=== PATIENT | male | born 1970 | race Hispanic/Latino ===

== ENCOUNTER 2017-02-07 07:04 | Emergency (ER) | payer OTHER ==
[2017-02-07] MEDS ORDERED: Sodium Chloride 0.9% 1,000 ML IV STA (07:34)
--- NOTE | 2017-02-07 07:51 | ED PDOC ---
Syncope/Near Syncope/Dizziness Chief Complaint (Nursing): Syncope Chief Complaint (Provider): Syncope History Per: Patient History/Exam Limitations: no limitations Onset/Duration Of Symptoms: Hrs (x1.5) Number Of Syncopal Episodes: 1 Activity At Onset Of Symptoms: Sitting (on the bus) Fall Associated With With Symptoms: No Additional Complaint(s): Gregory Stanford is a 46 year old male, with no past medical history, who was brought to the emergency department by EMS accompanied by his neighbor for a syncopal episode while in the bus onset 1 hour ago. Per neighbor, patient reached over and stated he wasn't feeling good a couple of minutes before he fainted. He did not shake and the episode lasted 1 minute. Patient reports that he was supposed to see his plastic surgeon today. The plastic surgeon prescribed him Duricef. He reports taking Duricef around 5am this morning. Patient had the episode around 6:05am. He denies any fever or chills. No further medical complains. PMD: Marin Maharaj MD Past Medical History Reviewed: Historical Data, Nursing Documentation, Vital Signs Vital Signs: Last Vital Signs Temp 97.7 F 02/07/17 07:18 Pulse 64 02/07/17 07:18 Resp 16 02/07/17 07:18 BP 129/95 H 02/07/17 07:18 Pulse Ox 100 02/07/17 07:18 - Surgical History Surgical History: Appendectomy - Family History Family History: States: Unknown Family Hx - Social History Current smoker - smoking cessation education provided: No Alcohol: Occasional Drugs: Denies - Allergies Allergies/Adverse Reactions: Allergies Allergy/AdvReac Type Severity Reaction Status Date / Time No Known Allergies Allergy Verified 02/07/17 07:33 Review of Systems ROS Statement: Except As Marked, All Systems Reviewed And Found Negative Constitutional: Negative for: Fever, Chills Neurological: Positive for: Other (Syncope) Physical Exam - Reviewed Nursing Documentation Reviewed: Yes Vital Signs Reviewed: Yes - Physical Exam Appears: Positive for: Well, Non-toxic, No Acute Distress Head Exam: Positive for: ATRAUMATIC, NORMAL INSPECTION, NORMOCEPHALIC Skin: Positive for: Normal Color, Warm, Dry Eye Exam: Positive for: EOMI, Normal appearance, PERRL Neck: Positive for: Normal, Painless ROM, Supple Cardiovascular/Chest: Positive for: Regular Rate, Rhythm. Negative for: Murmur Respiratory: Positive for: Normal Breath Sounds. Negative for: Respiratory Distress Gastrointestinal/Abdominal: Positive for: Normal Exam, Bowel Sounds, Soft. Negative for: Tenderness, Guarding, Rebound Extremity: Positive for: Normal ROM. Negative for: Deformity, Swelling Neurologic/Psych: Positive for: Alert, Oriented (x3). Negative for: Motor/ Sensory Deficits - Laboratory Results Result Diagrams: 02/07/17 07:45 02/07/17 07:45 - ECG ECG Rhythm: Positive for: Sinus Rhythm (NORMAL) Rate: 60 O2 Sat by Pulse Oximetry: 100 (RA) Pulse Ox Interpretation: Normal Medical Decision Making Medical Decision Making: Initial Impression: Vasovagal syncope Initial Plan: --Comp Metabolic Panel --Troponin I --CBC w/ differential --NS IV 1,000 ml @ 1,000mls/hr --reevaluation 1035 -Labs normal. ECG normal and patient is feeling normal Scribe Attestation: Documented by Sree Quevedo, acting as a scribe for Giancarlo Ashley MD Provider Scribe Attestation: All medical record entries made by the Scribe were at my direction and personally dictated by me. I have reviewed the chart and agree that the record accurately reflects my personal performance of the history, physical exam, medical decision making, and the department course for this patient. I have also personally directed, reviewed, and agree with the discharge instructions and disposition. Disposition - Clinical Impression Clinical Impression: Syncope - Disposition Referrals: [facility] [Outside] [facility] [Outside] Condition: IMPROVED Additional Instructions: follow up with your primary doctor in 1-2 days return to the ED with any worsening or concerning symptoms such as chest pain, shortness of breath, weakness or numbness Instructions: Syncope (ED) Forms: [employer] (French)
[2017-02-07 08:01] LABS: BASO % 0.4 % (0.0-2.0); EOS # 0.1 K/uL (0.0-0.7); EOS % 1.6 % (0.0-4.0); HEMATOCRIT 41.8 % (35.0-51.0); LYMPH # 1.1 K/uL (1.0-4.3); LYMPH % 22.9 % (20.0-40.0); MEAN CELL VOLUME 90.3 fl (80.0-94.0); MEAN CORPUSCULAR HGB CONC 34.3 g/dL (33.0-37.0); MEAN PLATELET VOLUME 7.8 fl (7.2-11.7); MONO # 0.3 K/uL (0.0-0.8); MONO % 5.6 % (0.0-10.0); NEUT # 3.3 K/uL (1.8-7.0); NEUT % 69.5 % (50.0-75.0); NRBC % 0.1 % (0.0-0.0); RED CELL DISTRIBUTION WIDTH 13.3 % (11.5-14.5); WHITE BLOOD COUNT 4.8 K/uL (4.8-10.8)
[2017-02-07 08:14] LABS: ALB/GLOB RATIO 1.4 (1.0-2.1); ALKALINE PHOSPHATASE 54 U/L (38-126); ALT/SGPT 38 U/L (21-72); AST/SGOT 24 U/L (17-59); BILIRUBIN,TOTAL 0.6 mg/dl (0.2-1.3); BLOOD UREA NITROGEN 15 mg/dl (9-20); CALCIUM 9.5 mg/dL (8.4-10.2); CARBON DIOXIDE 32 mmol/L (22-30); CHLORIDE 101 mmol/L (98-107); GFR AFRICAN-AMERICAN > 60; GLUCOSE,RANDOM 106 mg/dL (75-110); POTASSIUM 4.4 MMOL/L (3.6-5.0); SODIUM 144 mmol/l (132-148)
[2017-02-07 09:37] VITALS: RESP 16
[2017-02-07 10:59] VITALS: O2SAT 100
[2017-02-07 11:05] VITALS: BP 109/74; PULSE 64; TEMP 97.5
== END 2017-02-07 11:11 | disposition home or self-care (01) ==
LOC: H.ER 07:04
DX: R55 Syncope and collapse (principal)
CPT/HCPCS: 80053; 82948; 84484; 85025; 96360; 99285; J7040